=== PATIENT | female | born 1985 | race Caucasian/White ===

== ENCOUNTER 2017-11-04 11:54 | Inpatient (IN) ==
[2017-11-04] MEDS ORDERED: BUTORPHANOL TARTRATE 2 MG/ML VIAL IV PRN (12:04)
[2017-11-04] MEDS ORDERED: ONDANSETRON HCL/PF 2 MG/ML VIAL IV PRN ×2 (12:04→14:48)
[2017-11-04] MEDS ORDERED: RINGER'S SOLUTION,LACTATED 1,000 ML IV ONE (12:04)
[2017-11-04] MEDS ORDERED: OXYTOCIN/DEXTROSE 5%-WATER 30 UNITS/500 ML BAG IV ONE ×3 (12:04→20:00)
[2017-11-04 12:18] LABS: Hematocrit 40.5 % (37.0-47.0); Hemoglobin 13.5 gm/dL (12.5-16.0); Mean Cell Volume 85.4 fl (78-100); Mean Corpuscular Hemoglobin 28.5 pg (27-31); Mean Corpuscular Hgb Conc 33.3 g/dl (32-36); Mean Platelet Volume 12.6 fl (8-12.5); Neutrophil # 6.1 K/mm3 (1.3-6.0); Neutrophil % 69.9 % (42-75.0); Platelet Count 130 K/mm3 (150-450); Red Blood Count 4.74 M/mm3 (4.2-5.4); White Blood Count 8.8 K/mm3 (4.0-10.5)
[2017-11-04 12:37] LABS: Albumin * 2.6 gm/dl (3.4-5.0); Anion Gap 14.6 mmol/L (6.8-13.8); BUN/Creatinine Ratio 10.7 (9.0-21.6); Bilirubin, Total 0.2 mg/dL (0.0-1.1); Ca. Corrected For Albumin 9.8 mg/dL (8.4-10.2); Carbon Dioxide 23.3 mmol/L (24-32.6); Potassium 3.9 mmol/L (3.4-4.6); Total Protein 6.8 gm/dL (6.2-8.2)
[2017-11-04] MEDS: DEXTROSE 5%-LACTATED RINGERS 1,000 ML IV PRN ×2 (12:38→15:56)
[2017-11-04 13:12] LABS: Random Urine Total Protein Less than 6.0 mg/dL (0-12)
[2017-11-04] MEDS ORDERED: BUPIVACAINE HCL/0.9 % NACL/PF 250 ML EP PRN (14:48)
[2017-11-04] MEDS ORDERED: NALOXONE HCL 1 MG/1 ML SYRG IV PRN (14:48)
[2017-11-04] MEDS ORDERED: fentaNYL CITRATE/PF 50 MCG/ML AMPUL IT SCH (15:00)
--- NOTE | 2017-11-04 15:02 | ANES ---
Anesthesia Pre Procedure Eval HOME MEDICATIONS Cetirizine HCl [Zyrtec] 10 mg PO DAILY 08/02/15 [Last Taken 11/03/17] Vits96/Iron Fum/Folic [ S] 1 tab PO DAILY 08/02/15 [Last Taken 11/04/17] acetaminophen 325 mg capsule 325 mg PO Q6H PRN 10/04/17 [Last Taken Unknown] famotidine 40 mg tablet 40 mg PO DAILY tab 10/07/17 [Last Taken 11/04/17] doxylamine succinate 25 mg tablet 25 mg PO DAILY tab 10/18/17 [Last Taken Unknown] magnesium 250 mg tablet 250 mg PO DAILY 11/04/17 [Last Taken 11/04/17] Allergies/Adverse Reactions: Allergies Allergy/AdvReac Type Severity Reaction Status Date / Time Cephalosporins Allergy Severe Hives Verified 11/04/17 12:07 rice AdvReac Mild Nausea Verified 11/04/17 12:49 - Planned Procedure Planned Procedure: GESTATIONAL HTN Medication List Reviewed:: Yes Allergies Verified: Yes Medical History (Last Reviewed 11/04/17 @ 15:01 by Rafa Figueroa CRNA) Allergic rhinitis Onset Date: ~12/10/12 Bronchitis Onset Date: Unknown Currently Onset Date: 04/06/17 History of delivery Onset Date: Unknown Pneumonia Onset Date: Unknown Pre-eclampsia affecting childbirth Onset Date: 11/04/17 Premature delivery Onset Date: 08/02/15 Tremor, essential Onset Date: Unknown Urinary tract infection Onset Date: ~08/2012 Migraine without aura Onset Date: Unknown Surgical History (Last Reviewed 11/04/17 @ 15:01 by Rafa Figueroa CRNA) H/O wisdom tooth extraction Onset Date: Unknown Family History (Last Reviewed 11/04/17 @ 15:01 by Rafa Figueroa CRNA) Aunt Cancer Father Hypertension skin deterioration of hands Grandfather Alzheimers disease Grandmother Cancer Myocardial infarction Alzheimers disease Diabetes Grandmother Cancer Mother Ovarian cyst Chronic migraine Restless leg syndrome Sleep apnea Cancer - Airway/Neck/Teeth Within Normal Limits:: Yes Neck Exam: normal inspection Mallampatti Score: 2 Thyromental (T-M) distance: > 6 cm Mandibulo Hyoid distance: > 3 cm - Cardiovascular Patient History - Cardiac/Respiratory: No pertinent hx Tolerates Activity: Good Heart Sounds: S1 & S2, Regular - Anesthesia Assessment and Plan ASA Class: PS, II, E Anesthesia Type Plan: Epidural Planned difficult intubation/equipment available: No
--- NOTE | 2017-11-04 17:48 | HP ---
Chief Complaint - Chief Complaint Date of Service: 11/04/17 Time of Service: 17:30 Chief Complaint: Induction of labor for preeclampsia History of Present Illness: 32 yo at 39 2/7 wks presents to L&D for induction of labor due to preeclampsia. Patient has had elevated BPs for the last 3 visits. Labs today revealed mild thrombocytopenia (130k) and elevated Pr/Cr ratio 1017. She admits to mild ELISE which resolved upon admission to L&D, denies epigastric pain, or visual changes. This complicated by preeclampsia, h/o PTD (35wks) on Sara. Rh positive (O+) RNI GBS negative Medical History (Last Reviewed 11/04/17 @ 17:40 by Jose Rudolph DO) Allergic rhinitis Onset Date: ~12/10/12 Bronchitis Onset Date: Unknown Currently Onset Date: 04/06/17 History of delivery Onset Date: Unknown Pneumonia Onset Date: Unknown Pre-eclampsia affecting childbirth Onset Date: 11/04/17 Premature delivery Onset Date: 08/02/15 Tremor, essential Onset Date: Unknown Urinary tract infection Onset Date: ~08/2012 Migraine without aura Onset Date: Unknown Surgical History: Surgical History (Last Reviewed 11/04/17 @ 17:40 by Jose Rudolph DO) H/O wisdom tooth extraction Onset Date: Unknown Family History: Family History (Last Reviewed 11/04/17 @ 17:40 by Jose Rudolph DO) Aunt Cancer Father Hypertension skin deterioration of hands Grandfather Alzheimers disease Grandmother Cancer Myocardial infarction Alzheimers disease Diabetes Grandmother Cancer Mother Ovarian cyst Chronic migraine Restless leg syndrome Sleep apnea Cancer Social History: Preferred Language Wolof Review Of Systems (GEN) - Review of Systems Generalized/Overall Review: Present: No Symptoms Reported EENTM: Present: No Symptoms Reported Respiratory: Present: No Symptoms Reported Cardiac: Present: No Symptoms Reported Abdominal: Present: No Symptoms Reported Genitourinary: Present: No Symptoms Reported Musculoskeletal: Present: No Symptoms Reported Neurological: Present: Headache - resolved shortly after admission Skin: Present: No Symptoms Reported Endocrine: Present: No Symptoms Reported Allergies/Adverse Reactions: Allergies Allergy/AdvReac Type Severity Reaction Status Date / Time Cephalosporins Allergy Severe Hives Verified 11/04/17 12:07 rice AdvReac Mild Nausea Verified 11/04/17 12:49 Home Medications: HOME MEDICATIONS Cetirizine HCl [Zyrtec] 10 mg PO DAILY 08/02/15 [Last Taken 11/03/17] Vits96/Iron Fum/Folic [ S] 1 tab PO DAILY 08/02/15 [Last Taken 11/04/17] acetaminophen 325 mg capsule 325 mg PO Q6H PRN 10/04/17 [Last Taken Unknown] famotidine 40 mg tablet 40 mg PO DAILY tab 10/07/17 [Last Taken 11/04/17] doxylamine succinate 25 mg tablet 25 mg PO DAILY tab 10/18/17 [Last Taken Unknown] magnesium 250 mg tablet 250 mg PO DAILY 11/04/17 [Last Taken 11/04/17] Exam - Exam Vital Signs: Vital Signs - Last Taken Temp 36.7 C 11/04/17 15:18 Pulse 100 11/04/17 15:18 Resp 18 11/04/17 15:18 BP 164/97 H 11/04/17 15:18 Pulse Ox 97 11/04/17 15:18 BPs 125-152/72-94 Constitutional: Present: Alert, Oriented x3, Cooperative, No distress ENT Exam: Present: hearing grossly normal Breasts: Present: Exam deferred Respiratory: Present: lungs clear, no respiratory distress Cardiovascular/Chest: Present: normal peripheral pulses, regular rate, rhythm, no edema Abdomen: Present: soft, nontender, no rebound tenderness. Absent: guarding /Rectal: Present: Other - cervix 2/60/-2 Extremity: Present: non-tender, no pedal edema, no calf tenderness Skin Exam: Present: normal color, warm/dry, no cyanosis Neurologic: Present: alert, normal mood/affect, oriented x 3, other - DTR 3/4, no clonus Appearance: Present: appropriate appearance Eye contact: Present: cooperative, good eye contact, normal speech Thoughts: Present: normal thought pattern Diagnostic Studies: Abnormal Lab Results 11/04/17 11/04/17 11/04/17 Range/Units 12:15 12:15 Unknown Plt Count 130 L (150-450) K/mm3 MPV 12.6 H (8-12.5) fl Immature Gran % (Auto) 0.60 H (0.001-0.429) % Immature Gran # (Auto) 0.05 H (0.000-0.0310) K/mm3 Neutrophils # 6.1 H (1.3-6.0) K/mm3 Carbon Dioxide 23.3 L (24-32.6) mmol/L Anion Gap 14.6 H (6.8-13.8) mmol/L ALT 14 L (19-67) U/L Albumin 2.6 L (3.4-5.0) gm/dl Ur Random Creatinine 5.9 L (60-200) mg/dL U [place] Prot/Creat Ratio 1017 H (0-199) mg/gm Laboratory Results WBC 8.8 K/mm3 (4.0-10.5) 11/04/17 12:15 RBC 4.74 M/mm3 (4.2-5.4) 11/04/17 12:15 Hgb 13.5 gm/dL (12.5-16.0) 11/04/17 12:15 Hct 40.5 % (37.0-47.0) 11/04/17 12:15 MCV 85.4 fl (78-100) 11/04/17 12:15 MCH 28.5 pg (27-31) 11/04/17 12:15 MCHC 33.3 g/dl (32-36) 11/04/17 12:15 RDW 14.0 % (11.5-14.0) 11/04/17 12:15 Plt Count 130 K/mm3 (150-450) L 11/04/17 12:15 MPV 12.6 fl (8-12.5) H 11/04/17 12:15 Immature Gran % (Auto) 0.60 % (0.001-0.429) H 11/04/17 12:15 Immature Gran # (Auto) 0.05 K/mm3 (0.000-0.0310) H 11/04/17 12:15 Neutrophils % 69.9 % (42-75.0) 11/04/17 12:15 Lymphocytes % 21.1 % (20-51) 11/04/17 12:15 Monocytes % 7.4 % (0.0-9) 11/04/17 12:15 Eosinophils % 0.8 % (0.0-3.0) 11/04/17 12:15 Basophils % 0.2 % (0.0-1.0) 11/04/17 12:15 Nucleated RBC % 0.0 k/mm3 (0-1) 11/04/17 12:15 Neutrophils # 6.1 K/mm3 (1.3-6.0) H 11/04/17 12:15 Lymphocytes # 1.85 k/mm3 (1.5-3.5) 11/04/17 12:15 Monocytes # 0.7 k/mm3 (0.0-1.0) 11/04/17 12:15 Eosinophils # 0.1 k/mm3 (0.0-0.7) 11/04/17 12:15 Absolute Basophils 0.0 k/mm3 (0.0-0.1) 11/04/17 12:15 Sodium 134 mmol/L (132-142) 11/04/17 12:15 Plasma Sodium 134 mmol/L (130-142) 11/04/17 12:15 Potassium 3.9 mmol/L (3.4-4.6) 11/04/17 12:15 Chloride 100 mmol/L (97-106) 11/04/17 12:15 Carbon Dioxide 23.3 mmol/L (24-32.6) L 11/04/17 12:15 Anion Gap 14.6 mmol/L (6.8-13.8) H 11/04/17 12:15 BUN 8 mg/dL (3-23) 11/04/17 12:15 Creatinine 0.75 mg/dL (0.4-1.4) 11/04/17 12:15 Est GFR (Non-Af Amer) 96 mL/min (60-130) 11/04/17 12:15 BUN/Creatinine Ratio 10.7 (9.0-21.6) 11/04/17 12:15 Random Glucose 82 mg/dL (70-110) 11/04/17 12:15 Calcium 9.0 mg/dL (7.9-10.9) 11/04/17 12:15 Calcium Adj for Albumin 9.8 mg/dL (8.4-10.2) 11/04/17 12:15 Total Bilirubin 0.2 mg/dL (0.0-1.1) 11/04/17 12:15 AST 15 U/L (0-48) 11/04/17 12:15 ALT 14 U/L (19-67) L 11/04/17 12:15 Alkaline Phosphatase 138 U/L (50-170) 11/04/17 12:15 Total Protein 6.8 gm/dL (6.2-8.2) 11/04/17 12:15 Albumin 2.6 gm/dl (3.4-5.0) L 11/04/17 12:15 Ur Random Creatinine 5.9 mg/dL (60-200) L 11/04/17 Unknown U Random Total Protein Less than 6.0 mg/dL (0-12) 11/04/17 Unknown U [place] Prot/Creat Ratio 1017 mg/gm (0-199) H 11/04/17 Unknown Assessment/Plan - Assessment/Plan (1) Preeclampsia Assessment: Admit for pitocin induction of labor. Epidural PRN. Routine preeclampsia management. Severe features present only briefly so will hold starting magnesium at this time; If severe features develop, will start it. Problem: Acute Qualifiers: Trimester: third trimester Qualified Code(s): O14.93 - Unspecified pre- eclampsia, third trimester
--- NOTE | 2017-11-04 17:53 | ANES ---
Anesthesia Procedure Note Procedure Note: ANESTHESIA PROCEDURE NOTE Date of Procedure: 11/04/2017 Time of procedure:[]. 1510 Performed by: Elijah Figueroa CRNA Gis Specialist: None. Preprocedure diagnosis: Active labor. Post procedure diagnosis: Same. Procedure: Insertion of labor epidural. Indications: The patient is a [32] -year-old [multigravida] female in active labor requesting labor epidural for pain management. Findings: See below. Details of the procedure: The patient was placed in a sitting position. Back was prepped with DuraPrep. Patient was then draped in a sterile fashion. Lidocaine 1% was infiltrated to the skin and subcutaneous tissues at the level of the L3 4 interspace. The epidural space was identified using a 18-gauge Tuohy needle with [id number] technique. 20 mcg fentanyl was given intrathecally using a 27 ga. spinal needle. Epidural catheter was inserted without difficulty. Negative test dose was elicited using 5 mL of 1.5% preservative-free lidocaine plus epinephrine 1 200,000. The epidural catheter was then taped and secured in place. EBL: Minimal. Fluids: N/A. Specimen: N/A. Post procedure condition: The patient tolerated the procedure well. No complications were noted. Thank you for this consultation. Calderon CRNA
--- NOTE | 2017-11-04 17:54 | ANES ---
Post Anesthesia Assessment - Vital Signs Vitals: Last Vital Signs Temp 36.7 C 11/04/17 15:18 Pulse 100 11/04/17 15:18 Resp 18 11/04/17 15:18 BP 164/97 H 11/04/17 15:18 Pulse Ox 97 11/04/17 15:18 Airway Patency: Normal - Mental Status Level Of Consciousness: Awake - Pain Level Pain Score: 2 - N/V Assessment Nausea/Vomiting Presence: None Dehydration:: No
--- NOTE | 2017-11-04 17:54 | ANES ---
Post Anesthesia Discharge - Transfer of Care Transfer of Care handoff given to nurse: Yes - Anesthesia Post Op Note Anesthesia Post Op Note: care transferred to OB RN
--- NOTE | 2017-11-04 17:56 | ANES ---
Anesthesia Pre Procedure Eval Vitals/Labs: Last Vital Signs Temp 36.7 C 11/04/17 15:18 Pulse 100 11/04/17 15:18 Resp 18 11/04/17 15:18 BP 164/97 H 11/04/17 15:18 Pulse Ox 97 11/04/17 15:18 HOME MEDICATIONS Cetirizine HCl [Zyrtec] 10 mg PO DAILY 08/02/15 [Last Taken 11/03/17] Vits96/Iron Fum/Folic [ S] 1 tab PO DAILY 08/02/15 [Last Taken 11/04/17] acetaminophen 325 mg capsule 325 mg PO Q6H PRN 10/04/17 [Last Taken Unknown] famotidine 40 mg tablet 40 mg PO DAILY tab 10/07/17 [Last Taken 11/04/17] doxylamine succinate 25 mg tablet 25 mg PO DAILY tab 10/18/17 [Last Taken Unknown] magnesium 250 mg tablet 250 mg PO DAILY 11/04/17 [Last Taken 11/04/17] Allergies/Adverse Reactions: Allergies Allergy/AdvReac Type Severity Reaction Status Date / Time Cephalosporins Allergy Severe Hives Verified 11/04/17 12:07 rice AdvReac Mild Nausea Verified 11/04/17 12:49 - Planned Procedure Planned Procedure: GESTATIONAL HTN Medication List Reviewed:: Yes Allergies Verified: Yes Medical History (Last Reviewed 11/04/17 @ 17:55 by Rafa Figueroa CRNA) Allergic rhinitis Onset Date: ~12/10/12 Bronchitis Onset Date: Unknown Currently Onset Date: 04/06/17 History of delivery Onset Date: Unknown Pneumonia Onset Date: Unknown Pre-eclampsia affecting childbirth Onset Date: 11/04/17 Premature delivery Onset Date: 08/02/15 Tremor, essential Onset Date: Unknown Urinary tract infection Onset Date: ~08/2012 Migraine without aura Onset Date: Unknown Surgical History (Last Reviewed 11/04/17 @ 17:55 by Rafa Figueroa CRNA) H/O wisdom tooth extraction Onset Date: Unknown Family History (Last Reviewed 11/04/17 @ 17:55 by Rafa Figueroa CRNA) Aunt Cancer Father Hypertension skin deterioration of hands Grandfather Alzheimers disease Grandmother Cancer Myocardial infarction Alzheimers disease Diabetes Grandmother Cancer Mother Ovarian cyst Chronic migraine Restless leg syndrome Sleep apnea Cancer - Family Anesthesia History Family History:: no untoward family reactions to anesthesia - Airway/Neck/Teeth Within Normal Limits:: Yes Teeth Condition: Intact Neck Exam: full range of motion, normal inspection Mallampatti Score: 2 Thyromental (T-M) distance: > 6 cm Mandibulo Hyoid distance: > 3 cm - Respiratory Respiratory: lungs clear - Cardiovascular Patient History - Cardiac/Respiratory: No pertinent hx Tolerates Activity: Good Heart Sounds: S1 & S2, Regular - Anesthesia Assessment and Plan ASA Class: II, E Anesthesia Type Plan: Epidural Planned difficult intubation/equipment available: No
[2017-11-04] MEDS ORDERED: HYDROCORTISONE 30 APPL TUBE TP PRN (20:00)
[2017-11-04] MEDS ORDERED: BENZOCAINE/MENTHOL 81 SPRAY CAN TP PRN (20:00)
[2017-11-04] MEDS ORDERED: BISACODYL 10 MG SUPP.RECT RC PRN (20:00)
[2017-11-04] MEDS ORDERED: GLYCERIN/WITCH HAZEL LEAF 40 APPL BOX TP PRN (20:00)
[2017-11-04] MEDS ORDERED: oxyCODONE HCL/ACETAMINOPHEN 1 TAB TABLET PO PRN ×2 (20:00)
[2017-11-04] MEDS ORDERED: SENNOSIDES 8.6 MG TABLET PO PRN (20:00)
--- NOTE | 2017-11-04 20:04 | OR ---
Operative Report - Dictated Report Narrative: Spontaneous vaginal delivery of viable female at 1927 on 11/04/2017 with Apgars 9 and 10, weighing 3218 g in ILA position. Cord clamping delayed approximately 1 minute Placenta delivered complete, intact, with three vessel cord Estimated blood loss: less than 50 ml Anesthesia: epidural Lacerations: None
[2017-11-04] MEDS: IBUPROFEN 800 MG TABLET PO PRN (23:41)
[2017-11-05] MEDS: DOCUSATE SODIUM 100 MG CAPSULE PO SCH ×3 (04:46→21:44)
[2017-11-05] MEDS: IBUPROFEN 800 MG TABLET PO PRN ×3 (07:08→22:34)
--- NOTE | 2017-11-05 11:14 | PN ---
Subjective - Date and Time Seen Date: 11/05/17 Time: 11:13 Objective - Vitals Vitals: Last Vital Signs Temp 36.6 C 11/05/17 07:00 Pulse 82 11/05/17 07:00 Resp 18 11/05/17 07:00 BP 141/87 H 11/05/17 07:00 Pulse Ox 97 11/05/17 07:00 Patient denies complaints. Breast-feeding. Denies headache, visual changes, epigastric pain, or edema. Lochia wnl Abdomen - soft, nontender Uterus - firm, at umbilicus - 1 No calf tenderness Impression: day #1 - s/p spontaneous vaginal delivery. Preeclampsia- resolving. Plan: Continue routine care. Continue to monitor blood pressures and signs and symptoms of preeclampsia closely. - Abnormal Lab Findings Abnormal Lab Findings: Abnormal Lab Results 11/04/17 11/04/17 11/04/17 Range/Units 12:15 12:15 Unknown Plt Count 130 L (150-450) K/mm3 MPV 12.6 H (8-12.5) fl Immature Gran % (Auto) 0.60 H (0.001-0.429) % Immature Gran # (Auto) 0.05 H (0.000-0.0310) K/mm3 Neutrophils # 6.1 H (1.3-6.0) K/mm3 Carbon Dioxide 23.3 L (24-32.6) mmol/L Anion Gap 14.6 H (6.8-13.8) mmol/L ALT 14 L (19-67) U/L Albumin 2.6 L (3.4-5.0) gm/dl Ur Random Creatinine 5.9 L (60-200) mg/dL U [place] Prot/Creat Ratio 1017 H (0-199) mg/gm Cauti Physician Documentation - Urinary Catheter Management Urethral ([place]) Date of Insertion: 11/04/17 Time of Insertion: 15:50 Assessment/Plan - Problems/Diagnosis (1) Preeclampsia Problem: Acute Qualifiers: Trimester: third trimester Qualified Code(s): O14.93 - Unspecified pre- eclampsia, third trimester
[2017-11-06] MEDS: IBUPROFEN 800 MG TABLET PO PRN (06:52)
[2017-11-06 07:50] VITALS: BP 117/83
[2017-11-06] MEDS: DOCUSATE SODIUM 100 MG CAPSULE PO SCH (09:07)
--- NOTE | 2017-11-06 09:21 | PN ---
Subjective - Date and Time Seen Date: 11/06/17 Time: 09:19 Objective - Vitals Vitals: Last Vital Signs Temp 36.8 C 11/06/17 06:40 Pulse 94 11/06/17 06:40 Resp 18 11/06/17 06:40 BP 117/83 11/06/17 06:40 Pulse Ox 99 11/06/17 06:40 Patient denies complaints. No preeclamptic signs or symptoms. Breast-feeding well. Lochia wnl Abdomen - soft, nontender Uterus - firm, at umbilicus - 2 No calf tenderness Impression: day #2 - s/p spontaneous vaginal delivery. Preeclampsia- resolved. Plan: Routine discharge instructions. Preeclampsia precautions. Follow-up in 1 -2 weeks for blood pressure check. Cauti Physician Documentation - Urinary Catheter Management Urethral ([place]) Date of Insertion: 11/04/17 Time of Insertion: 15:50 Assessment/Plan - Problems/Diagnosis (1) Preeclampsia Problem: Acute Qualifiers: Trimester: third trimester Qualified Code(s): O14.93 - Unspecified pre- eclampsia, third trimester
== END 2017-11-06 11:24 | disposition home or self-care (01) | DRG 775 ==
LOC: OB 11:54
PROVIDERS: ADMIT Obstetrics & Gynecology; ATTEND Obstetrics & Gynecology
CPT/HCPCS: 36415; 59025; 80053; 82570; 84155; 84156; 85025; 88307